=== PATIENT | female | born 1940 | race Caucasian/White ===

== ENCOUNTER 2017-04-15 16:27 | Emergency (ER) | payer MEDICARE, OTHER ==
[~2017-04-15] VITALS: Ht 172.7 cm; Wt 86.4 kg
[2017-04-15] MEDS ORDERED: LIDOCAINE 1%, 20ML SQ ONE (17:00)
[2017-04-15] MEDS ORDERED: DIPH,PERTUSS(ACELL),TET VAC/PF 0.5 ML IM-VACC ONE ×2 (17:00→18:44)
[2017-04-15] MEDS ORDERED: LIDOCAINE 1%, 20ML ONE (18:28)
[2017-04-15 18:43] VITALS: BP 167/81
== END 2017-04-15 19:21 | disposition home or self-care (01) ==
LOC: EDBD 19:15 → ED 19:15
DX: S01.111A Laceration without foreign body of right eyelid and periocular area, initial encounter (principal); I10 Essential (primary) hypertension; W01.0XXA Fall on same level from slipping, tripping and stumbling without subsequent striking against object, initial encounter; Y93.89 Activity, other specified; Y92.89 Other specified places as the place of occurrence of the external cause; Y99.9 Unspecified external cause status
CPT/HCPCS: 12011; 90471; 90715